=== PATIENT | male | born 1965 | race Two or more races ===

== ENCOUNTER 2024-06-19 23:22 | Emergency (ER) | payer MEDICAID, SELFPAY ==
[2024-06-19 23:34] VITALS: BP 116/78; PULSE 74; RESP 16; TEMP 37.1; O2SAT 97
[2024-06-19 23:36] VITALS: PULSE 73; RESP 22; O2SAT 92
--- NOTE | 2024-06-19 23:46 | XR_ITS ---
Examination: AP chest single view TECHNIQUE: SOB today FINDINGS: Normal heart size Reduced inspiratory effort No lobar pneumonia or pulmonary edema IMPRESSION: No lumbar pneumonia or pulmonary edema
--- NOTE | 2024-06-19 23:55 | PD.EDSOB ---
ED SOB =RME/HPI General Chief Complaint: General Adult/Misc Complain Stated Complaint: CHOKING Time Seen by Provider: 06/19/24 23:55 Arrival date/time: 06/19/24 23:22 RME / HPI RME / HPI Narrative: This section includes all my notes and documentations, including HPI, PE, and ED course. Guy Porras MD HPI: 58-year-old male here to be evaluated with vomiting and shortness of breath just prior to arrival while heavily intoxicated. No other complaints. ROS: All negative except as documented in HPI. Physical Exam: General: Alert and oriented. Appears intoxicated. Eyes: Conjunctivae and lids clear. EOMI. PERRL. ENT: No nasal congestion. Pharynx normal. Tympanic membrane normal bilaterally. Neck: Supple. No carotid bruit. No JVD. Heart: RRR. Lungs: No respiratory distress. Good air movement with rhonchi and rails. Abdomen: Soft and nontender. Normal bowel sounds. No distension. No rebound or guarding. Back: No CVA tenderness. Legs: No clubbing, cyanosis, edema. Skin: Warm and dry. Neuro: Alert and oriented X 3. Cranial Nerves II-XII grossly intact. No peripheral motor deficits. I reviewed all diagnostic test results. My interpretation of the EKG is sinus rhythm with no acute ST?T changes. My interpretation of the chest x-ray is no acute findings. Blood tests remarkable for serum alcohol 329.2. At this point, diagnoses include alcohol intoxication and aspiration pneumonia. Treatment here included IV fluid, Solu-Medrol, DuoNeb, Zofran, and Unasyn. Significant improvement noted. Recommended a trial of outpatient treatment. Based on my best medical judgment, made decision no further evaluation or treatment indicated at this time. Patient (and family) understands and agrees to the discharge instructions customized and printed, see below. Discharge Instructions from Dr. Porras printed for you: 1. After evaluation, you have pneumonia from vomiting going into your airways/lungs due to severe alcohol intoxication. 2. This can be fatal so please stop drinking alcohol. 3. Take Augmentin for the pneumonia. 4. See a private doctor on 06/22/2024 for recheck and further care. Ask for help until you are completely better. If needed, ask for help to stop alcohol use. 5. Seek immediate medical care with worsening or with any concerns. Guy Porras MD Related Data Previous Rx's ?Medication ?Instructions ?Recorded amoxicillin 875 mg-potassium 1 tab PO BID #10 tabs 06/20/24 clavulanate 125 mg tablet Allergies Allergy/AdvReac Type Severity Reaction Status Date / Time No Known Allergies Allergy Verified 06/19/24 23:49 Course Quality Measures none Orders Category Date Time Status EKG (ED ONLY) *Do not use* NOW Care 06/19/24 23:45 Completed EKG (ED Only) Stat Exams 06/19/24 23:45 Ordered XR chest 1V portable Stat Exams 06/19/24 23:46 Completed ABG [Arterial Blood Gas] Stat Lab 06/20/24 00:54 Completed Alcohol, Blood Medical Stat Lab 06/19/24 23:47 Completed Amylase Stat Lab 06/19/24 23:47 Completed BNP [B-Type Natriuretic Peptide] Stat Lab 06/19/24 23:47 Completed CBC Stat Lab 06/19/24 23:47 Completed CMP [Comprehensive Metabolic Panel] Stat Lab 06/19/24 23:47 Completed Lipase Stat Lab 06/19/24 23:47 Completed Magnesium Stat Lab 06/19/24 23:47 Completed Troponin I Stat Lab 06/19/24 23:47 Completed Albuterol/Ipratr Rt Kelsie [Duoneb Rt Kelsie] Med 06/19/24 23:46 Discontinued 3 ml INH X1 ONE Ampicillin/Sulbac Inj [Unasyn Inj] 3 gm Med 06/20/24 01:46 Discontinued Sodium Chloride 0.9% (Pop) [NS 0.9% mini bag] 100 ml IV X1 MethylPREDNISolone.* [SoluMEDROL Inj] Med 06/19/24 23:46 Discontinued 125 mg IVP X1 ONE Ondansetron Inj [Zofran Inj] Med 06/19/24 23:46 Discontinued 4 mg IV X1 ONE Sodium Chloride 0.9% 1000 ml [Ns] 1,000 ml Med 06/19/24 23:46 Discontinued IV 999 mls/hr Vital Signs Vital signs: Vital Signs Temperature 98.7 F 06/19/24 23:34 Pulse Rate 74 06/19/24 23:34 Respiratory Rate 16 03/22/25 23:34 Blood Pressure 116/78 03/22/25 23:34 Pulse Oximetry (%) 97 06/19/24 23:34 Oxygen Delivery Method Room Air 06/19/24 23:34 Shortness of Breath / Dyspnea Patient data External records reviewed:: None Clinical information provided by:: patient, EMS and family Social determinants that could affect healthcare access:: alcohol use Patient has the following chronic illnesses:: Alcohol abuse How is presenting disease/condition affected by chronic disease/condition?: exacerbated by Evaluation data The following diagnostics were reviewed and interpreted by me:: lab results, radiology exam(s) and EKG tracing(s) (My interpretation of the EKG is: Sinus rhythm (73 bpm) with nonspecific ST-T changes. Guy Porras MD) Lab and/or radiology exams considered but not ordered:: None Interpretation Summary: Alcohol intoxication aspiration pneumonia Medications / Prescriptions Medications or Prescriptions considered but not ordered:: None Medication administrations:: Medication Administration History Discontinued Medications Albuterol/Ipratropium (Albuterol/Ipratropium (Duoneb) Rt Kelsie 3 Ml Nebu) 3 ml INH X1 ONE Stop: 06/19/24 23:47 Last Admin: 06/20/24 00:04 Dose: 3 ml Documented By: TM Sodium Chloride (Ns) 1,000 mls @ 999 mls/hr IV .Q1H1M ONE Stop: 06/20/24 00:46 Last Infusion: 06/20/24 01:32 Dose: Infused Documented By: Admin: 06/20/24 00:11 Dose: 999 mls/hr Documented By: CVL Ampicillin Sodium/Sulbactam (Sodium 3 gm/ Sodium Chloride) 100 mls @ 200 mls/hr IV X1 ONE Stop: 06/20/24 01:47 Last Infusion: 06/20/24 03:09 Dose: Infused Documented By: Admin: 06/20/24 02:30 Dose: 200 mls/hr Documented By: CCT Methylprednisolone Sodium Succinate (Methylprednisolone Sod Succ 62.5 Mg/Ml 2ml Vial) 125 mg IVP X1 ONE Stop: 06/19/24 23:47 Last Admin: 06/20/24 00:10 Dose: 125 mg Documented By: CVL Ondansetron HCl (Ondansetron Inj 2 Mg/Ml Inj 2 Ml) 4 mg IV X1 ONE; Protocol Stop: 06/19/24 23:47 Last Admin: 06/20/24 00:09 Dose: 4 mg Documented By: CVL IV fluid, Zofran, Solu-Medrol, DuoNeb, and Unasyn Consultations Consultation(s) initiated? (list below): No Diagnosis Shortness of Breath Differential Diagnosis: acute exacerbation of chronic obstructive airways disease, congestive heart failure, community acquired pneumonia, asthma with exacerbation and pulmonary embolism Most likely diagnosis given after review of the tests above:: Uncle intoxication and aspiration pneumonia Admission Indicated Admission indicated?: not indicated Explain why admission is indicated or not indicated:: With significant improvement, there was no indication for admission. Admission Request Was there a request for admission?: No Disposition Plan Disposition Plan: Discharge Discharge Attestation Discharge Attestation: The patient and all family members were given an opportunity to ask questions and understood the discharge instructions. Discharge instructions specifically effects, indications for sooner follow up or return to the emergency department, and the expected course of current diagnosis. Patient condition: Stable Discharge Plan Plan Patient Disposition: HOME (Self Care) Prescriptions/Referrals Prescriptions/Med Rec: New amoxicillin-pot clavulanate 875-125 mg tablet 1 tab PO BID Qty: 10 0RF Referrals: No Primary/Family,Physician [Primary Care Provider] - In 1 week Problem List Clinical Impression: Aspiration pneumonia, Alcohol intoxication Patient/Caregiver Discharge Instructions Discharge Activity: activity as tolerated Education Materials: ED Alcohol Intoxication, ED Pneumonia (Adult) Additional Instructions: Discharge Instructions from Dr. Porras printed for you: 1. After evaluation, you have pneumonia from vomiting going into your airways/lungs due to severe alcohol intoxication. 2. This can be fatal so please stop drinking alcohol. 3. Take Augmentin for the pneumonia. 4. See a private doctor on 06/22/2024 for recheck and further care. Ask for help until you are completely better. If needed, ask for help to stop alcohol use. 5. Seek immediate medical care with worsening or with any concerns. Print Language: Cypriot Stand Alone Forms: Shireen Award Info., Patient Portal Info Letter
[2024-06-20] MEDS: ALBUTEROL/IPRATROPIUM (Duoneb) RT SOL 3 ML NEBU INH (00:04)
[2024-06-20 00:07] VITALS: PULSE 76; RESP 18; O2SAT 98
[2024-06-20] MEDS: ONDANSETRON INJ 2 MG/ML INJ 2 ML 4 MG IV (00:09)
[2024-06-20] MEDS: MethylPREDNISolone SOD SUCC 62.5 MG/ML 2ML VIAL 125 MG IVP (00:10)
[2024-06-20] MEDS: SODIUM CHLORIDE 0.9% 1000 ML 1,000 ML 999 ML IV (00:11)
[2024-06-20 00:41] LABS: Basophils % (Auto) 0 % (0-2.5); Eosinophils % (Auto) 0 % (0-10); Hematocrit 41.4 % (41.0-53.0); Hemoglobin 14.4 g/dL (13.5-16.0); Immature Granulocytes % (Auto) 0 % (0-0); Immature Granulocytes Auto 0.01 Thou/mm3 (0.00-0.00); Lymphocytes # (Auto) 2.8 Thou/mm3 (1.0-4.8); Lymphocytes % (Auto) 39 % (10-50); Mean Corpuscular HGB Conc 34.8 g/dl (31.0-37.0); Mean Corpuscular Hemoglobin 31.5 pg (25.0-35.0); Mean Corpuscular Volume 91 fL (80-100); Monocytes # (Auto) 0.4 Thou/mm3 (0.0-0.8); Monocytes % (Auto) 6 % (0-12); Neutrophils # (Auto) 3.8 Thou/mm3 (1.8-7.7); Neutrophils % (Auto) 54 % (37-80); Nucleated Red Blood Cell % 0 /100 WBC (0); Platelet Count 184 Thou/mm3 (140-440); RDW Standard Deviation 40.1 fL (35.1-43.9); Red Blood Count 4.57 Miln/mm3 (4.50-5.90)
[2024-06-20 00:55] LABS: B-Type Natriuretic Peptide < 20 pg/mL (0-100)
[2024-06-20 01:03] LABS: Base Excess -2 (-3-3); HCO3 23 mEq/L (20-26); O2 Saturation 91 % (91-98); PCO2 43 mmHg (32.0-48.0); PO2 66 mmHg (83-108); pH, Arterial 7.35 (7.35-7.45)
[2024-06-20 01:04] LABS: Allen Test Performed/OK; Inspired Oxygen, FIO2 24 %; Puncture Site Right Radial
[2024-06-20 01:07] LABS: Alanine Aminotransferase 29 U/L (10-49); Albumin, Serum 4.5 gm/dL (3.5-5.0); Albumin/Globulin Ratio 1.6 (1.2-2.2); Alcohol, Blood Medical 329.2 mg/dL (0-10.0); Alkaline Phosphatase 110 U/L (46-116); Amylase 67 U/L (30-118); Anion Gap 10 (7-16); Aspartate Amino Transferase 42 U/L (0-34); BUN/Creatinine Ratio 14 Ratio (12-20); Bilirubin,Total 0.4 mg/dL (0.3-1.2); Blood Urea Nitrogen 11 mg/dL (9-23); Calcium 8.9 mg/dL (8.3-10.6); Calcium (Corrected) 8.9 mg/dL (8.5-10.1); Carbon Dioxide 25.5 mMol/L (20.0-31.0); Chloride 104 mMol/L (98-107); Creatinine (Component) 0.8 mg/dL (0.6-1.3); Globulin 2.8 gm/dL (2.3-3.5); Glucose 102 mg/dL (74-106); Lipase 32 U/L (12-53); Magnesium 2.3 mg/dL (1.6-2.6); Osmolality,Calculated 276 (275-295); Sodium 139 mMol/L (136-145); Total Protein 7.3 gm/dL (5.7-8.2); Troponin I < 0.002 ng/mL (0.0-0.045); eGFR > 60 See Note
[2024-06-20] MEDS: AMPICILLIN/SULBAC INJ 3 GM in SODIUM CHLORIDE 0.9% (POP) 100 ML IV (02:30)
[2024-06-20 02:35] VITALS: BP 102/58; PULSE 83; RESP 18; TEMP 36.9; O2SAT 95
[2024-06-20 03:20] VITALS: RESP 18
== END 2024-06-20 03:23 | disposition home or self-care (01) ==
PROVIDERS: Emergency Provider Emergency Medicine
DX: J69.0 Pneumonitis due to inhalation of food and vomit (principal); F10.129 Alcohol abuse with intoxication, unspecified; Y90.8 Blood alcohol level of 240 mg/100 ml or more; R94.31 Abnormal electrocardiogram [ECG] [EKG]
CPT/HCPCS: 36415; 36600; 71045; 80053; 80320; 82150; 82803; 83690; 83735; 83880; 84484; 85025; 93005; 94640; 96361; 96365; 96374; 96375; 99284; A9270; J0295; J2405; J2919; J7030; G0480